=== PATIENT | female | born 1995 | race Caucasian/White ===

== ENCOUNTER → 2019-07-28 13:36 | Outpatient (CLI) | payer SELFPAY ==
[2019-07-21 11:10] VITALS: BMI 24.3
--- NOTE | 2019-07-28 13:38 | US_ITS ---
STUDY: ULTRASOUND BREAST - RIGHT REASON FOR EXAM: Female, 24 years old. Palpable lump in the right breast. TECHNIQUE: Axial and longitudinal images of the RIGHT breast were performed with a high resolution ultrasound transducer. # OF IMAGES: 24 COMPARISON: None. FINDINGS: RIGHT Breast: The palpable abnormality corresponds to a 4.1 cm x 4.3 cm x 1.5 cm mildly heterogeneous hypoechoic nodule. A biopsy is recommended for further evaluation. US/Breast Limited Unilateral IMPRESSION: The palpable abnormality corresponds to a 4.1 cm x 4.3 cm x 1.5 cm mildly heterogeneous hypoechoic solid nodule. A biopsy recommended for further evaluation. ASSESSMENT CATEGORY: BIRADS Category 4: Suspicious - Biopsy Should Be Considered. A letter regarding these results will be sent to the patient by the facility within 30 days. Electronically Signed: Brian Ferguson, at 12:40 EST , Service support ,
--- NOTE | 2019-07-28 14:50 | BRBX_PTH ---
PATIENT: FREDI BERTRAND LOC: [facility] U#:[id number] AGE/SX: 30/F ROOM: RE07/28/[address]: LINNETTE Almanzar : 1995 BED: DIS: SPEC #: [id number] RECD: 07/28/19 17:00 STATUS: ANGELICA NESTOR #: [id number] JUANA: 07/28/19 14:[address]: Mattie Ricardo DEPT: SURGICAL PATHOLOGY RECD BY: Beny Larsen ENTERED: 07/29/19 07:50 SP TYPE: BREAST BX OTHR DR: MD Ashli Steen NP-C Tissues: Right breast, NOS Procedures: Surgery Specimen Level IV HEADER OPERATION: Right breast core biopsy, excisional PRE-OP DIAGNOSIS: Right breast mass TISSUE SUBMITTED: Right breast mass 7 o'clock, 8 cm sebaceous cyst MICROSCOPIC DIAGNOSIS Right breast mass, excisional biopsy: Epidermal inclusion cyst. SJ:angel 07/30/19 MICROSCOPIC DESCRIPTION Slides are reviewed. GROSS DESCRIPTION Received in fixative is one container labeled with the patient's name and designated right breast. The specimen consists of a collapsed cystic donahue-pink tissue measuring 3 x 2.5 x 1 cm. The specimen is disrupted. The cystic tissue is serially sectioned and reveals smooth lining. Also present in the container are multiple fragments of donahue-white granular material measuring in aggregate 3 x 2.5 x 0.2 cm. The entire specimen is submitted in four cassettes. / KAITLIN:angel 07/29/19 TC:5 CPT: 44434
== END ==
PROVIDERS: PCP Family Medicine; Referring Provider Nurse Practitioner Women's Health; Visit Provider Nurse Practitioner Women's Health
DX: N60.01 Solitary cyst of right breast (principal)
CPT/HCPCS: 76642; 88305

== ENCOUNTER → 2024-02-25 | Outpatient (CLI) | payer OTHER, SELFPAY ==
[2024-02-25 10:04] LABS: Absolute Lymphocyte Count 1.48 X10^3/uL (0.83-4.51); Absolute Neutrophil Count 3.5 X10^3/uL (2.0-7.7); Basophil# 0.05 X10^3/uL; Basophil% 0.9 % (0-1); Eosinophil# 0.35 X10^3/uL; Hematocrit 37.7 % (37-47); Hemoglobin 12.5 g/dL (12.0-15.0); Lymphocyte # 1.48 X10^3/ul (0.83-4.51); Lymphocyte % 25.4 % (19-41); Mean Corp Hgb Conc 33.2 g/dL (32-36); Mean Corpuscular Hgb 29.8 pg (27.0-32.0); Mean Corpuscular Volume 89.8 fL (81-99); Mean Platelet Vol. 9.3 fl (6.2-12.0); Monocyte# 0.39 X10^3/uL; Monocyte% 6.7 % (0-10); NRBC Flagged by Analyzer 0 % (0-5); Neutrophil # 3.54 X10^3/uL (2.7-7.7); Neutrophil % 60.7 % (47-70); Platelet Count 293 K/mm3 (150-450); RBC Distribution Width CV 12.8 % (11.6-14.6); RBC Distribution Width SD 41.6 fl (35.1-43.9); White Blood Count 5.8 K/mm3 (4.4-11.0)
== END | disposition home or self-care (01) ==
LOC: LAB 09:25
PROVIDERS: PCP Family Medicine; Referring Provider Nurse Practitioner Women's Health; Visit Provider Nurse Practitioner Women's Health
DX: N93.9 Abnormal uterine and vaginal bleeding, unspecified (principal); Z13.29 Encounter for screening for other suspected endocrine disorder
CPT/HCPCS: 36415; 84443; 85025